=== PATIENT | female | born 1950 | race Caucasian/White ===

== ENCOUNTER 2024-06-26 21:18 | Emergency (ER) | payer MEDICARE, OTHER, SELFPAY ==
[2024-06-26 21:54] VITALS: BP 125/78; PULSE 92; RESP 16; TEMP 36.7; O2SAT 97; BMI 30.8
--- NOTE | 2024-06-26 22:46 | W.ED.SKABFB ---
HPI - Skin/Abscess/Foreign Bdy General: Chief complaint: Skin/Abscess/Foreign Body Stated complaint: Left Leg Sore Time Seen by Provider: 06/26/24 22:29 Source: patient Mode of arrival: ambulatory Limitations: no limitations History of Present Illness: Patient is a 74-year-old female present to the emergency department due to wound and associated redness after she hit it on her walker about 3 days ago. She suffered 2 wounds in the process, 1 is healing well but she states this 1 is taking a lot longer to heal and she is having surrounding redness. Wounds are to her left anterior sampson. She denies any fever, nausea/vomiting, or other systemic signs of illness. She has been applying topical medicine and been wrapping it with nonadhesive dressing, states she has not left it open and dry much. MD complaint: other (Wound/redness left anterior sampson) Onset (ago): day(s) Location: LLE Associated symptoms: Deny chills, fever(s), nausea or vomiting Related Data Previous Rx's Medication Instructions Recorded doxycycline hyclate 100 mg tablet 100 mg PO BID 10 days #20 tabs 06/26/24 Allergies Allergy/AdvReac Type Severity Reaction Status Date / Time amoxicillin Allergy Unknown Verified 06/26/24 21:59 clavulanic acid Allergy Unknown Verified 06/26/24 22:00 [From Augmentin] Review of Systems General: Reports: 10 or more systems reviewed and unremarkable except in HPI and below Const: Denies: fever(s) or chills Card: Denies: chest pain Resp: Denies: dyspnea GI: Denies: abdominal pain, nausea, vomiting or diarrhea Musc: Denies: extremity pain or joint pain Skin/Breast: Reports: erythema and non-healing lesions; Denies: rash, skin pain, skin tenderness or new lesions Neuro: Denies: headache(s) Physical Exam Const: COMMON NORMALS: no acute distress, average body habitus, patient oriented x3, no limitations, healthy appearing, alert and well nourished HENMT: COMMON NORMALS: normocephalic and atraumatic HEAD & SCALP: normocephalic and atraumatic Neck/C-Spine: COMMON NORMALS: full ROM, no lymphadenopathy, supple and no meningeal signs Resp: COMMON NORMALS: normal respiratory effort, No use of accessory muscles and clear to auscultation bilaterally AUSCULTATION: clear to auscultation bilaterally Cardio: COMMON NORMALS: regular rate and regular rhythm RATE: regular rate RHYTHM: regular rhythm Extremity: COMMON NORMALS: full ROM and capillary refill normal Neuro: COMMON NORMALS: patient oriented x3 SENSORIUM/ORIENTATION: Yes alert MENINGEAL SIGNS: Yes no meningeal signs Skin: COMMON NORMALS: turgor normal NARRATIVE SKIN EXAM: Patient has 2 wounds to her left anterior sampson. Larger of the 2 wounds is healing well, smaller wound does have some surrounding erythema with central granulation tissue. There is no active bleeding or drainage. No contamination. GENERAL SKIN EXAM: turgor normal Course Vital Signs: Vital signs: Vital Signs Temperature 98.0 F 06/26/24 21:54 Pulse Rate 92 06/26/24 21:54 Respiratory Rate 16 06/26/24 21:54 Blood Pressure 125/78 06/26/24 21:54 Pulse Oximetry 97 06/26/24 21:54 Oxygen Delivery Me thod Room Air 06/26/24 21:54 MDM - Skin/Abscess/Foreign Bdy Medicial Decision Making Patient presented for evaluation of a nonhealing wound to her left anterior sampson after she bumped it on her walker. She suffered 2 wounds, larger 1 does appear much farther along the healing process, however the wound in question still appears not infected, though due to the mild surrounding erythema will treat prophylactically with antibiotics. Discussed proper wound care and she is to follow-up with primary care when she gets back to [place]. No radiology studies performed this visit Discharge Plan Discharge Patient Disposition: Home Clinical Impression: Cellulitis Condition: Stable Prescriptions: New doxycycline hyclate 100 mg tablet 100 mg PO BID 10 Days Qty: 20 0RF Discharge Orders: Discharge ED (Routine); Ordered 06/26/24 Ordered By: Jer Cannon Discharge Diet: Usual diet Discharge Activity: Increase activity as tolerated Patient Instructions: Cellulitis (ED) Activity Restrictions/Additional Instructions: Doxycycline as prescribed. Leave wound open to dry as discussed. Monitor for any fever, nausea/vomiting, or other systemic signs of illness and return to the emergency department. Otherwise please follow-up with primary care as discussed. Coding Level of Care Code ED Program Engineer for Piotr Giron
[2024-06-26] MEDS: doxycycline 100 mg Tablet PO (22:52)
[2024-06-26 22:59] VITALS: BP 129/53; PULSE 62; RESP 18; O2SAT 97
== END 2024-06-26 23:00 | disposition home or self-care (01) ==
PROVIDERS: Emergency Provider Physician Assistant
DX: L03.116 Cellulitis of left lower limb (principal)
CPT/HCPCS: 99283

== ENCOUNTER 2024-11-04 17:57 | Emergency (ER) | payer MEDICARE, SELFPAY ==
[2024-11-04] VITALS (11 sets, daily range): BP systolic 108–138; BP diastolic 57–82; PULSE 61–90; RESP 16–22; TEMP 36.6; O2SAT 92–100; BMI 29.0
--- NOTE | 2024-11-04 18:01 | XRR_ITS ---
PROCEDURE INFORMATION: Exam: XR Chest Exam date and time: 11/04/2024 8:22 PM Age: 74 years old Clinical indication: Other: Weakness TECHNIQUE: Imaging protocol: Radiologic exam of the chest. Views: 1 view. COMPARISON: No relevant prior studies available. FINDINGS: Lungs: No focal consolidation. Multiple calcified granulomas in the left upper lobe likely of no clinical significance. Pleural spaces: Unremarkable. No pleural effusion. No pneumothorax. Heart/Mediastinum: Mitral annular calcifications. Bones/joints: Severe degenerative changes in the right glenohumeral joint. XR/XR chest 1V portable [id number] IMPRESSION: No focal consolidation.
[2024-11-04 18:57] LABS: Basophils % 0.4 %; Eosinophils # 0.1 10^3/uL (0.0-0.8); Eosinophils % 2.5 %; Hematocrit 22.4 % (36-47); Lymphocytes # 1.4 10^3/uL (0.8-4.8); Lymphocytes % 27.3 %; Mean Corpuscular HGB Conc 29.9 g/dL (30-55); Mean Corpuscular Hemoglobin 26.8 pg (27-33); Mean Corpuscular Volume 89.6 fl (85-98); Mean Platelet Volume 9.3 fL (7.4-10.4); Monocytes # 0.7 10^3/uL (0.2-0.9); Monocytes % 13.2 %; Neutrophils % 56.2 %; Nucleated Red Blood Cells % 0.4 %; Platelet Count 243 10^3/cmm (157-399); Red Cell Distribution Width 19.4 % (12.1-15.1); White Blood Count 5.16 10^3/uL (3.29-11.43)
[2024-11-04 19:26] LABS: Alanine Aminotransferase 21 U/L (0-33); Alkaline Phosphatase 92 U/L (35-105); Aspartate Amino Transferase 32 U/L (0-32); Blood Urea Nitrogen 31 mg/dL (8-23); Calcium 9.4 mg/dL (8.5-10.5); Carbon Dioxide 27 mmol/L (22-29); Chloride 105 mmol/L (98-107); Creatinine Clr Calc Pharmacy 57.2869; Globulin 2.6 g/dL (1.3-4.6); Glucose 102 mg/dL (65-115); Magnesium 1.7 mg/dL (1.7-2.3); Osmolality Calculated 297 mOsm/kg (285-295); Sodium 140 mmol/L (136-145); Thyroid Stimulating Hormone 4.22 uIU/mL (0.27-4.20); Total Bilirubin 0.3 mg/dL (0.15-1.2); Total Protein 5.6 g/dL (6.6-8.7)
--- NOTE | 2024-11-04 20:32 | ECG_ITS ---
[facility]: 2024-[facility]04 Pat Name: Mili Landry Department: Room: Gender: Female Hand Laminator: : 1950 Requested By: Yusuf Uribe Order Number: [id number] Reading MD: ILIANA URENA Measurements Intervals [place] Rate: 61 P: 0 NJ: 0 QRS: 14 QRSD: 109 T: 82 QT: 400 QTc: 404 Interpretive Statements ATRIAL FIBRILLATION MODERATE ST DEPRESSION [0.05+ mV ST DEPRESSION] No previous ECG available for comparison Electronically Signed On 11-06-2024 23:28:51 MEDIA THEORIST AND AUTHOR OF by ILIANA URENA [id number]
--- NOTE | 2024-11-04 20:51 | W.ED.WEAKNES ---
Documented by User: MANN Cordoba 11/05/24 00:13 HPI - Weakness General: Chief complaint: Weakness Stated complaint: weakness sleepy Time Seen by Provider: 11/04/24 20:28 Source: patient Mode of arrival: ambulatory Limitations: no limitations History of Present Illness: Patient is a 74-year-old female who presents the emergency department complaining of weakness worsening over the past few days. In September she was hospitalized in [place] where she is from, this was due to severe anemia where she spent 2 weeks in the hospital. Workup included EGD and colonoscopy, as well as hematologic workup and patient states that they could not find any reason why she is anemic. She was discharged home after receiving 4 units of blood, was feeling okay until weakness started worsening here recently. She states that she is feeling extra sleepy, continually she is not having any black tarry stools or bright red blood in her stool. No hematemesis or hemoptysis, no hematuria. She is not reporting any chest pain or shortness of breath, but does note severe weakness where she is increasingly unable to ambulate without getting weak. She has not been having any fevers. States that prior to September she has not had issues with anemia before. MD Complaint: generalized weakness Onset (ago): day(s) Duration: constant and progressively worsening Location: generalized Context: other (Recent hospitalization for anemia, feels the same) Associated symptoms: Denies chest pain, chills, dysuria, fever(s), headache(s), nausea or vomiting Review of Systems General: Reports: 10 or more systems reviewed and unremarkable except in HPI and below Const: Reports: fatigue and malaise; Denies: fever(s) or chills Eyes: Denies: change in vision ENMT: Denies: throat pain, ear or mastoid pain or nasal discharge Card: Denies: chest pain, palpitations, swelling of feet/ankles or lightheadedness Resp: Denies: dyspnea, productive cough, wheezing or hemoptysis GI: Denies: abdominal pain, nausea, vomiting, hematemesis, diarrhea, constipation or hematochezia : Denies: flank pain, difficulty voiding, dysuria, urinary frequency or hematuria Musc: Reports: muscle weakness; Denies: neck pain, back pain or joint pain Skin/Breast: Denies: rash Neuro: Reports: weakness in extremities; Denies: headache(s) or numbness in extremities Physical Exam Const: COMMON NORMALS: patient oriented x3 GENERAL APPEARANCE: cooperative ORIENTATION/CONSCIOUSNESS: Yes awake OTHER: Tired appearing, pallor noted HENMT: COMMON NORMALS: normocephalic, atraumatic, moist oral mucous membranes and oropharynx normal HEAD & SCALP: normocephalic and atraumatic Eye: COMMON NORMALS: Equal, round and reactive pupils present PUPIL: Yes Equal, round and reactive pupils present OTHER: Pallor of inner eyelids Neck/C-Spine: COMMON NORMALS: full ROM and no lymphadenopathy Chest: COMMONS NORMALS: normal inspection of the chest Resp: COMMON NORMALS: normal respiratory effort, No retractions, No use of accessory muscles and clear to auscultation bilaterally AUSCULTATION: clear to auscultation bilaterally Cardio: COMMON NORMALS: regular rate, S1 normal heart sound present, S2 normal heart sound present, No gallops present (Cardio), No murmurs present (Cardio), No rub (Cardio) and Peripheral pulses 2+ throughout RATE: regular rate RHYTHM: abnormal rhythm irregularly irregular HEART SOUNDS: S1 normal heart sound present and S2 normal heart sound present PERIPHERAL PULSES: Peripheral pulses 2+ throughout GI: COMMON NORMALS: Normal to inspection, nondistended, normoactive bowel sounds present, Soft to palpation and non-tender PALPATION: Yes Soft to palpation Extremity: COMMON NORMALS: full ROM and no pedal edema NARRATIVE EXTREMITY EXAM: Bruising to right lower extremity, reportedly chronic. Delayed cap refill Neuro: COMMON NORMALS: patient oriented x3, moves all extremities, no focal motor deficits and no sensory deficits noted Course Vital Signs: Vital signs: Vital Signs Temperature 98.2 F 11/05/24 03:49 Pulse Rate 70 11/05/24 04:10 Respiratory Rate 19 H 11/05/24 04:10 Blood Pressure 141/76 11/05/24 04:10 Pulse Oximetry 97 11/05/24 04:10 Oxygen Delivery Me thod Room Air 11/05/24 03:00 MDM - Weakness Medical Decision Making Patient presented to the emergency department with severe weakness, stating that it feels identical to when she was anemic. She states that in September she was hospitalized for 2 weeks back home in [place], had a full GI workup with the scope and colonoscopy, as well as hematologic workup. Does not report to me of any findings a told her, was discharged stable condition and cannot here to visit family when she started feeling weak again over the past few days. On exam did note some pallor, tired appearing. Hemoglobin noted to be 6.7, with oh positive blood she was began on transfusion. No symptoms of potential blood loss, normal stools reported and with her recently having normal instrumentation/direct visualization do not suspect blood loss anemia. I spoke with hospitalist, Dr. Lane, who had stated to transfuse 1 unit and see how she feels after this. Patient is stating that she thinks she needs admission to the hospital for further workup, family in the room also stating this. Iron and TIBC pending at this time. Patient discussed with Dr. Macias who patient will be handed off. Lab Data 11/05/24 01:29 11/04/24 18:41 Radiology Impressions Chest X-Ray 11/04/24 18:01 IMPRESSION: No focal consolidation. Laboratory Results WBC 5.99 10^3/uL (3.29-11.43) 11/05/24 01:29 RBC 2.84 10^6/uL (3.85-5.65) L 11/05/24 01:29 Hgb 7.60 g/dL (11.27-16.99) L 11/05/24 01:29 Hct 24.6 % (36-47) L 11/05/24 01:29 MCV 86.6 fl (85-98) 11/05/24 01:29 MCH 26.8 pg (27-33) L 11/05/24 01: MCHC 30.9 g/dL (30-55) 11/05/24 01:29 RDW 18.3 % (12.1-15.1) H 11/05/24 01:29 Plt Count 244 10^3/cmm (157-399) 11/05/24 01:29 MPV 8.9 fL (7.4-10.4) 11/05/24 01:29 Neut % (Auto) 58.1 % 11/05/24 01:29 Lymph % (Auto) 25.4 % 11/05/24 01:29 [place] % (Auto) 12.5 % 11/05/24 01:29 Eos % (Auto) 3.2 % 11/05/24 01:29 Baso % (Auto) 0.3 % 11/05/24 01: Neut # (Auto) 3.48 10^3/uL (1.8-7.7) 11/05/24: Lymph # (Auto) 1.5 10^3/uL (0.8-4.8) 11/05/24 01: [place] # (Auto) 0.8 10^3/uL (0.2-0.9) 11/05/24: Eos # (Auto) 0.2 10^3/uL (0.0-0.8) 11/05/24 01: Baso # (Auto) 0.0 10^3/uL (0.0-0.1) 11/05/24: Nucleated RBC % (auto) 0 % 11/05/24: Nucleated RBCs # 0.0 /100WBC 11/05/24: PT 16.40 SECONDS (12.1-14.9) H 11/04/24 18:41 INR 1.23 (0.8-1.2) H 11/04/24 18:41 APTT 32.8 SECONDS (23.9-36.7) 11/04/24 18:41 Sodium 140 mmol/L (136-145) 11/04/24 18:41 Potassium 4.0 mmol/L (3.5-5.1) 11/04/24 18:41 Chloride 105 mmol/L (98-107) 11/04/24 18:41 Carbon Dioxide 27 mmol/L (22-29) 11/04/24 18:41 Anion Gap 12.0 (5-19) 11/04/24 18:41 BUN 31 mg/dL (8-23) H 11/04/24 18:41 Creatinine 0.9 mg/dL (0.5-0.9) 11/04/24 18:41 GFR Calculation Not Reportable 11/04/24 18:41 Glucose 102 mg/dL (65-115) 11/04/24 18:41 Calculated Osmolality 297 mOsm/kg (285-295) H 11/04/24 18:41 Calcium 9.4 mg/dL (8.5-10.5) 11/04/24 18:41 Magnesium 1.7 mg/dL (1.7-2.3) 11/04/24 18:41 Iron 13 ug/dL (37-145) L 11/04/24 18:41 TIBC 265 mcg/dl 11/04/24 18: % Saturation 4.9 % (20-50) L 11/04/24 18:41 Unsat Iron Binding 252 ug/dL (112-347) 11/04/24 18:41 Total Bilirubin 0.3 mg/dL (0.15-1.2) 11/04/24 18:41 AST 32 U/L (0-32) 11/04/24 18:41 ALT 21 U/L (0-33) 11/04/24 18:41 Alkaline Phosphatase 92 U/L (35-105) 11/04/24 18:41 Total Protein 5.6 g/dL (6.6-8.7) L 11/04/24 18:41 Albumin 3.0 g/dL (3.5-5.2) L 11/04/24 18:41 Globulin 2.6 g/dL (1.3-4.6) 11/04/24 18: TSH 4.22 uIU/mL (0.27-4.20) H 11/04/24 18:41 Urine Color Yellow (Yellow) 11/04/24 21: Urine Appearance Clear (CLEAR) 11/04/24 21: Urine pH 5.5 (5-7) 11/04/24 21: Ur Specific [place] 1.019 (1.005-1.030) 11/04/24 21: Urine Protein Negative (Negative) 11/04/24 21: Urine Glucose (UA) Negative (Normal) 11/04/24 21: Urine Ketones Negative (Negative) 11/04/24 21: Urine Blood Negative (Negative) 11/04/24 21: Urine Nitrate Negative (Negative) 11/04/24 21: Urine Bilirubin Negative (Negative) 11/04/24 21: Urine Urobilinogen 1.0 mg/dL (Negative) 11/04/24 21: Ur Leukocyte Esterase Negative (Negative) 11/04/24 21:30 Urine RBC 0-2 /hpf (0-2) 11/04/24 21: Urine WBC 0-5 /hpf (0-5) 11/04/24 21:30 Ur Squamous Epith Cells 0-5 /hpf (0-5) 11/04/24 21:30 Amorphous Sediment Not Reportable 11/04/24 21:30 Urine Bacteria None seen /hpf (NONE) 11/04/24 21:30 Hyaline Casts 0-4 /lpf H 11/04/24 21:30 Blood Type O Positive 11/04/24 20:48 Rho(D) Type Rh positive 11/04/24 20:48 Antibody Screen Negative 11/04/24 20:48 Crossmatch See Detail 11/04/24 20:48 All radiology interpretation(s) finalized by discharge Discharge Plan Discharge Patient Disposition: Home Clinical Impression: Anemia Qualifiers: Anemia type: unspecified type Qualified Code(s): D64.9 - Anemia, unspecified Condition: Stable Discharge Orders: Discharge ED (Routine); Ordered 11/05/24 Ordered By: Parrish Macias Patient Instructions: Anemia, Blood Transfusion (DC) Activity Restrictions/Additional Instructions: Please follow-up with your family practitioner within the next 7 to 10 days for further evaluation and treatment. You were transfused 2 units of blood in the ER. Thank you for choosing [facility] for your healthcare needs today. Please realize that you were seen in the emergency department and that we are providing you with an emergency medical screening exam and this may not be a complete and all exclusive of all testing and/or medical workup we may need to determine your element or severity of your illness. It is very important that you follow-up as instructed with your primary care provider or specialist for the additional evaluation and to discuss your medical treatment plan. You may return to the emergency department should you have concerns or if your condition changes or worsens in any way. Coding Level of Care Code ED Belt Notcher for Piotr Giron Related Data Allergies Allergy/AdvReac Type Severity Reaction Status Date / Time amoxicillin Allergy Unknown Verified 06/26/24 21:59 clavulanic acid Allergy Unknown Verified 06/26/24 22:00 [From Augmentin] Documented by User: Parrish Macias DO 11/05/24 04:34 HPI - Weakness General: Chief complaint: Weakness Stated complaint: weakness sleepy Time Seen by Provider: 11/04/24 20:28 Course Vital Signs: Vital signs: Vital Signs Temperature 98.2 F 11/05/24 03:49 Pulse Rate 70 11/05/24 04:10 Respiratory Rate 19 H 11/05/24 04:10 Blood Pressure 141/76 11/05/24 04:10 Pulse Oximetry 97 11/05/24 04:10 Oxygen Delivery Me thod Room Air 11/05/24 03:00 MDM - Weakness Medical Decision Making Patient presented to the emergency department with severe weakness, stating that it feels identical to when she was anemic. She states that in September she was hospitalized for 2 weeks back home in [place], had a full GI workup with the scope and colonoscopy, as well as hematologic workup. Does not report to me of any findings a told her, was discharged stable condition and cannot here to visit family when she started feeling weak again over the past few days. On exam did note some pallor, tired appearing. Hemoglobin noted to be 6.7, with oh positive blood she was began on transfusion. No symptoms of potential blood loss, normal stools reported and with her recently having normal instrumentation/direct visualization do not suspect blood loss anemia. I spoke with hospitalist, Dr. Lane, who had stated to transfuse 1 unit and see how she feels after this. Patient is stating that she thinks she needs admission to the hospital for further workup, family in the room also stating this. Iron and TIBC pending at this time. Patient discussed with Dr. Macias who patient will be handed off. Care transferred over to myself at shift change. Patient did get a repeat CBC which showed her anemia had improved by 1 point. Will go ahead and transfuse a second unit. And patient be discharged home. Medical Records I reviewed the patient's medical records. Lab Data I reviewed the patient's lab results. 11/05/24 01:29 11/04/24 18:41 Radiology Impressions Chest X-Ray 11/04/24 18:01 IMPRESSION: No focal consolidation. Laboratory Results WBC 5.99 10^3/uL (3.29-11.43) 11/05/24 01:29 RBC 2.84 10^6/uL (3.85-5.65) L 11/05/24 01: Hgb 7.60 g/dL (11.27-16.99) L 11/05/24: Hct 24.6 % (36-47) L 11/05/24 01: MCV 86.6 fl (85-98) 11/05/24 01: MCH 26.8 pg (27-33) L 11/05/24 01: MCHC 30.9 g/dL (30-55) 11/05/24: RDW 18.3 % (12.1-15.1) H 11/05/24 01: Plt Count 244 10^3/cmm (157-399) 11/05/24: MPV 8.9 fL (7.4-10.4) 11/05/24 01: Neut % (Auto) 58.1 % 11/05/24 01: Lymph % (Auto) 25.4 % 11/05/24 01: [place] % (Auto) 12.5 % 11/05/24 01: Eos % (Auto) 3.2 % 11/05/24 01: Baso % (Auto) 0.3 % 11/05/24: Neut # (Auto) 3.48 10^3/uL (1.8-7.7) 11/05/24: Lymph # (Auto) 1.5 10^3/uL (0.8-4.8) 11/05/24 01: [place] # (Auto) 0.8 10^3/uL (0.2-0.9) 11/05/24: Eos # (Auto) 0.2 10^3/uL (0.0-0.8) 11/05/24 01: Baso # (Auto) 0.0 10^3/uL (0.0-0.1) 11/05/24: Nucleated RBC % (auto) 0 % 11/05/24: Nucleated RBCs # 0.0 /100WBC 11/05/24: PT 16.40 SECONDS (12.1-14.9) H 11/04/24 18:41 INR 1.23 (0.8-1.2) H 11/04/24 18:41 APTT 32.8 SECONDS (23.9-36.7) 11/04/24 18:41 Sodium 140 mmol/L (136-145) 11/04/24 18:41 Potassium 4.0 mmol/L (3.5-5.1) 11/04/24 18:41 Chloride 105 mmol/L (98-107) 11/04/24 18:41 Carbon Dioxide 27 mmol/L (22-29) 11/04/24 18:41 Anion Gap 12.0 (5-19) 11/04/24 18:41 BUN 31 mg/dL (8-23) H 11/04/24 18:41 Creatinine 0.9 mg/dL (0.5-0.9) 11/04/24 18:41 GFR Calculation Not Reportable 11/04/24 18:41 Glucose 102 mg/dL (65-115) 11/04/24 18:41 Calculated Osmolality 297 mOsm/kg (285-295) H 11/04/24 18:41 Calcium 9.4 mg/dL (8.5-10.5) 11/04/24 18:41 Magnesium 1.7 mg/dL (1.7-2.3) 11/04/24 18:41 Iron 13 ug/dL (37-145) L 11/04/24 18:41 TIBC 265 mcg/dl 11/04/24 18:41 % Saturation 4.9 % (20-50) L 11/04/24 18:41 Unsat Iron Binding 252 ug/dL (112-347) 11/04/24 18:41 Total Bilirubin 0.3 mg/dL (0.15-1.2) 11/04/24 18:41 AST 32 U/L (0-32) 11/04/24 18:41 ALT 21 U/L (0-33) 11/04/24 18:41 Alkaline Phosphatase 92 U/L (35-105) 11/04/24 18:41 Total Protein 5.6 g/dL (6.6-8.7) L 11/04/24 18:41 Albumin 3.0 g/dL (3.5-5.2) L 11/04/24 18:41 Globulin 2.6 g/dL (1.3-4.6) 11/04/24 18:41 TSH 4.22 uIU/mL (0.27-4.20) H 11/04/24 18:41 Urine Color Yellow (Yellow) 11/04/24 21:30 Urine Appearance Clear (CLEAR) 11/04/24 21: Urine pH 5.5 (5-7) 11/04/24 21:30 Ur Specific [place] 1.019 (1.005-1.030) 11/04/24 21:30 Urine Protein Negative (Negative) 11/04/24 21: Urine Glucose (UA) Negative (Normal) 11/04/24 21: Urine Ketones Negative (Negative) 11/04/24 21: Urine Blood Negative (Negative) 11/04/24 21: Urine Nitrate Negative (Negative) 11/04/24 21: Urine Bilirubin Negative (Negative) 11/04/24 21: Urine Urobilinogen 1.0 mg/dL (Negative) 11/04/24 21:30 Ur Leukocyte Esterase Negative (Negative) 11/04/24 21:30 Urine RBC 0-2 /hpf (0-2) 11/04/24 21:30 Urine WBC 0-5 /hpf (0-5) 11/04/24 21:30 Ur Squamous Epith Cells 0-5 /hpf (0-5) 11/04/24 21:30 Amorphous Sediment Not Reportable 11/04/24 21: Urine Bacteria None seen /hpf (NONE) 11/04/24 21:30 Hyaline Casts 0-4 /lpf H 11/04/24 21:30 Blood Type O Positive 11/04/24 20:48 Rho(D) Type Rh positive 11/04/24 20:48 Antibody Screen Negative 11/04/24 20:48 Crossmatch See Detail 11/04/24 20:48 Discharge Plan Discharge Patient Disposition: Home Clinical Impression: Anemia Qualifiers: Anemia type: unspecified type Qualified Code(s): D64.9 - Anemia, unspecified Condition: Stable Discharge Orders: Discharge ED (Routine); Ordered 11/05/24 Ordered By: Parrish Macias Patient Instructions: Anemia, Blood Transfusion (DC) Activity Restrictions/Additional Instructions: Please follow-up with your family practitioner within the next 7 to 10 days for further evaluation and treatment. You were transfused 2 units of blood in the ER. Thank you for choosing [facility] for your healthcare needs today. Please realize that you were seen in the emergency department and that we are providing you with an emergency medical screening exam and this may not be a complete and all exclusive of all testing and/or medical workup we may need to determine your element or severity of your illness. It is very important that you follow-up as instructed with your primary care provider or specialist for the additional evaluation and to discuss your medical treatment plan. You may return to the emergency department should you have concerns or if your condition changes or worsens in any way. Coding Level of Care Code ED Belt Notcher for Piotr Fwd Related Data Allergies Allergy/AdvReac Type Severity Reaction Status Date / Time amoxicillin Allergy Unknown Verified 06/26/24 21:59 clavulanic acid Allergy Unknown Verified 06/26/24 22:00 [From Augmentin]
[2024-11-04 21:49] LABS: Bilirubin Urine Negative (Negative); Blood Urine Negative (Negative); Glucose Urine UA Negative (Normal); Ketones Urine Negative (Negative); Leukocyte Esterase Urine Negative (Negative); Nitrate Urine Negative (Negative); Protein Urine Negative (Negative); Specific Gravity, Urine 1.019 (1.005-1.030); Urine Appearance Clear (CLEAR); Urine Color Yellow (Yellow); pH Urine 5.5 (5-7)
[2024-11-04 21:54] LABS: Add Urine Microscopic? YES; Bacteria Urine None Seen /hpf; Hyaline Casts Urine 0-4 /lpf; RBC Urine 0-2 /hpf (0-2); Squamous Epithelial Cell Urine 0-5 /hpf (0-5); WBC Urine 0-5 /hpf (0-5)
[2024-11-04 22:00] LABS: INR 1.23 (0.8-1.2)
[2024-11-04 22:01] LABS: Partial Thromboplastin Time 32.8 SECONDS (23.9-36.7)
--- NOTE | 2024-11-04 22:47 | PC.NURSE ---
NOAH GODFREY WAS AT BEDSIDE AND CONFIRMED RIGHT PT AND BLOOD WAS CORRECT WITH PTS NURSE.
[2024-11-04 23:14] LABS: Iron 13 ug/dL (37-145); Percent Saturation 4.9 % (20-50); Total Iron Binding Capacity 265 mcg/dl; Unsaturated Iron Binding 252 ug/dL (112-347)
--- NOTE | 2024-11-04 23:33 | PC.NURSE ---
AT 2037 DOSAGE CHANGE TO 100 ML/HR AT 2252 TITRATED UP TO 125. LISTENED TO PTS LUNGS AT 2322, LUNGS CLEAR IN ALL [place].
[2024-11-05] VITALS (40 sets, daily range): BP systolic 90–157; BP diastolic 55–97; PULSE 63–97; RESP 11–33; TEMP 36.6–37; O2SAT 78–99
[2024-11-05 01:36] LABS: Basophils % 0.3 %; Eosinophils # 0.2 10^3/uL (0.0-0.8); Eosinophils % 3.2 %; Hematocrit 24.6 % (36-47); Lymphocytes # 1.5 10^3/uL (0.8-4.8); Lymphocytes % 25.4 %; Mean Corpuscular HGB Conc 30.9 g/dL (30-55); Mean Corpuscular Hemoglobin 26.8 pg (27-33); Mean Corpuscular Volume 86.6 fl (85-98); Mean Platelet Volume 8.9 fL (7.4-10.4); Monocytes # 0.8 10^3/uL (0.2-0.9); Monocytes % 12.5 %; Neutrophils # 3.48 10^3/uL (1.8-7.7); Neutrophils % 58.1 %; Nucleated Red Blood Cells % 0 %; Platelet Count 244 10^3/cmm (157-399); Red Blood Count 2.84 10^6/uL (3.85-5.65); Red Cell Distribution Width 18.3 % (12.1-15.1); White Blood Count 5.99 10^3/uL (3.29-11.43)
[2024-11-05] MEDS: sodium chloride 0.9% 100 mL Bag 50 ML IV (02:19)
== END 2024-11-05 08:12 | disposition home or self-care (01) ==
PROVIDERS: Emergency Medicine; Emergency Provider Physician Assistant
DX: D64.9 Anemia, unspecified (principal)
CPT/HCPCS: 36415; 36430; 71045; 80053; 81001; 83540; 83550; 83735; 84443; 85025; 85610; 85730; 86850; 86900; 86920; 93005; 99285; P9016

== ENCOUNTER 2024-11-16 11:58 | Emergency (ER) | payer MEDICARE, SELFPAY ==
[2024-11-16] VITALS (8 sets, daily range): BP systolic 125–162; BP diastolic 67–86; PULSE 51–76; RESP 14–16; TEMP 36.4–36.8; O2SAT 90–94; BMI 29.9
--- NOTE | 2024-11-16 11:59 | XRR_ITS ---
PROCEDURE INFORMATION: Exam: XR Chest Exam date and time: 11/16/2024 12:18 PM Age: 74 years old Clinical indication: Other: Weakness TECHNIQUE: Imaging protocol: Radiologic exam of the chest. Views: 1 view. COMPARISON: CR (CHEST, ) 11/04/2024 8:22 PM FINDINGS: Airway: Airways are patent. Lungs: Stable platelike atelectasis in the left mid lung. Stable left upper lobe calcified granulomas. Remainder of the lungs are clear. Pleural spaces: No pleural effusions or pneumothorax. Heart/Mediastinum: Stable linear increased density in the left retrocardiac space. Question hiatal hernia. Moderate cardiomegaly. Vasculature: Calcified aortic knob. Bones/joints: Bone demineralization. No acute skeletal abnormality or aggressive osseous lesion. Soft tissues: No acute soft tissue findings. XR/XR chest 1V portable [id number] IMPRESSION: 1. No acute findings. 2. Incidental findings as above.
--- NOTE | 2024-11-16 11:59 | ECG_ITS ---
[facility] 2024-[facility]-16 Pat Name: Mili Landry Department: Room: Gender: Female Interface Developer: : [id number] Requested By: Yusuf Uribe Order Number: [id number] Alex MD: Bryant Finley M.D. Measurements Intervals [place] Rate: 59 P: 0 MO: 0 QRS: -12 QRSD: 107 T: 106 QT: 317 QTc: 314 Interpretive Statements ATRIAL FIBRILLATION WITH SLOW VENTRICULAR RESPONSE WITH ABERRANT CONDUCTION OR VENTRICULAR PREMATURE COMPLEXES ST DEVIATION AND MODERATE T-WAVE ABNORMALITY, CONSIDER LATERAL ISCHEMIA [-0.1+ mV T-WAVE IN I/aVL/V5/V6] Compared to ECG 11/04/2024 20:32:30 Ventricular premature complex(es) now present Aberrant conduction of supraventricular beat(s) now present T-wave abnormality now present Possible ischemia now present ST (T wave) deviation no longer present Electronically Signed On 11-19-2024 12:42:37 STAFF ASSISTANT by Bryant Finley M.D. [email or web address]
[2024-11-16 13:02] LABS: Eosinophils # 0.1 10^3/uL (0.0-0.8); Eosinophils % 2.1 %; Lymphocytes # 0.6 10^3/uL (0.8-4.8); Lymphocytes % 8.5 %; Mean Corpuscular HGB Conc 29.6 g/dL (30-55); Mean Corpuscular Hemoglobin 26.6 pg (27-33); Mean Corpuscular Volume 89.9 fl (85-98); Mean Platelet Volume 8.9 fL (7.4-10.4); Monocytes # 0.4 10^3/uL (0.2-0.9); Monocytes % 6.5 %; Neutrophils # 5.57 10^3/uL (1.8-7.7); Neutrophils % 82.6 %; Nucleated Red Blood Cells # 0.1 /100WBC; Nucleated Red Blood Cells % 0.9 %; Platelet Count 227 10^3/cmm (157-399); Red Blood Count 2.67 10^6/uL (3.85-5.65); Red Cell Distribution Width 18.5 % (12.1-15.1); White Blood Count 6.74 10^3/uL (3.29-11.43)
[2024-11-16 13:22] LABS: Alanine Aminotransferase 39 U/L (0-33); Alkaline Phosphatase 93 U/L (35-105); Anion Gap 11.4 (5-19); Aspartate Amino Transferase 41 U/L (0-32); Blood Urea Nitrogen 29 mg/dL (8-23); Calcium 9.8 mg/dL (8.5-10.5); Carbon Dioxide 29 mmol/L (22-29); Chloride 106 mmol/L (98-107); Creatinine Clr Calc Pharmacy 58.2006; Globulin 2.2 g/dL (1.3-4.6); Glucose 94 mg/dL (65-115); Osmolality Calculated 300 mOsm/kg (285-295); Potassium 4.4 mmol/L (3.5-5.1); Sodium 142 mmol/L (136-145); Total Bilirubin 1.2 mg/dL (0.15-1.2); Total Protein 5.2 g/dL (6.6-8.7)
[2024-11-16 13:47] LABS: INR 1.72 (0.8-1.2)
--- NOTE | 2024-11-16 16:33 | ED_ITS ---
HPI - Weakness 2 General: Chief complaint: Weakness Stated complaint: anemia Time Seen by Provider: 11/16/24 16:09 Source: patient Limitations: no limitations History of Present Illness: 74-year-old female states she has been h aving ongoing issues with anemia for the last 4 to 5 months she states she has had multiple transfusions she states she was admitted in [place] and had a large workup not able to figure out the cause of anemia she states that over the last 2 days she been having some decreased energy and weakness. States she is concerned she is getting anemic she denies any blood in her stools denies any blood in her vomit. She denies any fever. Course 2 Vital Signs: Vital signs: Vital Signs Temperature 98.3 F 11/16/24 12:11 Pulse Rate 51 L 11/16/24 16:31 Respiratory Rate 16 11/16/24 16:31 Blood Pressure 153/73 11/16/24 16:31 Pulse Oximetry 90 11/16/24 16:31 Oxygen Delivery Me thod Room Air 11/16/24 16:31 MDM - Weakness Medical Decision Making Patient presents here with some generalized weakness she does have some anemia did give her 1 unit PRBC she is to follow-up with her primary care doctor she has no signs of acute hemorrhage here blood pressures been normal. Return if worsening Medical Records I reviewed the patient's medical records. Lab Data I reviewed the patient's lab results. 11/16/24 12:52 11/16/24 12:52 Radiology Impressions Chest X-Ray 11/16/24 11:59 IMPRESSION: 1. No acute findings. 2. Incidental findings as above. Laboratory Results WBC 6.74 10^3/uL (3.29-11.43) 11/16/24 12:52 RBC 2.67 10^6/uL (3.85-5.65) L 11/16/24 12:52 Hgb 7.10 g/dL (11.27-16.99) L 11/16/24 12:52 Hct 24.0 % (36-47) L 11/16/24 12:52 MCV 89.9 fl (85-98) 11/16/24 12:52 MCH 26.6 pg (27-33) L 11/16/24 12:52 MCHC 29.6 g/dL (30-55) L 11/16/24 12:52 RDW 18.5 % (12.1-15.1) H 11/16/24 12:52 Plt Count 227 10^3/cmm (157-399) 11/16/24 12:52 MPV 8.9 fL (7.4-10.4) 11/16/24 12:52 Neut % (Auto) 82.6 % 11/16/24 12:52 Lymph % (Auto) 8.5 % 11/16/24 12:52 [place] % (Auto) 6.5 % 11/16/24 12:52 Eos % (Auto) 2.1 % 11/16/24 12:52 Baso % (Auto) 0.0 % 11/16/24 12:52 Neut # (Auto) 5.57 10^3/uL (1.8-7.7) 11/16/24 12:52 Lymph # (Auto) 0.6 10^3/uL (0.8-4.8) L 11/16/24 12:52 [place] # (Auto) 0.4 10^3/uL (0.2-0.9) 11/16/24 12:52 Eos # (Auto) 0.1 10^3/uL (0.0-0.8) 11/16/24 12:52 Baso # (Auto) 0.0 10^3/uL (0.0-0.1) 11/16/24 12:52 Nucleated RBC % (auto) 0.9 % 11/16/24 12:52 Nucleated RBCs # 0.1 /100WBC 11/16/24 12:52 PT 21.30 SECONDS (12.1-14.9) H 11/16/24 12:52 INR 1.72 (0.8-1.2) H 11/16/24 12:52 Sodium 142 mmol/L (136-145) 11/16/24 12:52 Potassium 4.4 mmol/L (3.5-5.1) 11/16/24 12:52 Chloride 106 mmol/L (98-107) 11/16/24 12:52 Carbon Dioxide 29 mmol/L (22-29) 11/16/24 12:52 Anion Gap 11.4 (5-19) 11/16/24 12:52 BUN 29 mg/dL (8-23) H 11/16/24 12:52 Creatinine 0.9 mg/dL (0.5-0.9) 11/16/24 12:52 GFR Calculation Not Reportable 11/16/24 12:52 Glucose 94 mg/dL (65-115) 11/16/24 12:52 Calculated Osmolality 300 mOsm/kg (285-295) H 11/16/24 12:52 Calcium 9.8 mg/dL (8.5-10.5) 11/16/24 12:52 Total Bilirubin 1.2 mg/dL (0.15-1.2) 11/16/24 12:52 AST 41 U/L (0-32) H 11/16/24 12:52 ALT 39 U/L (0-33) H 11/16/24 12:52 Alkaline Phosphatase 93 U/L (35-105) 11/16/24 12:52 Total Protein 5.2 g/dL (6.6-8.7) L 11/16/24 12:52 Albumin 3.0 g/dL (3.5-5.2) L 11/16/24 12:52 Globulin 2.2 g/dL (1.3-4.6) 11/16/24 12:52 Blood Type O Positive 11/16/24 16:43 Rho(D) Type Rh positive 11/16/24 16:43 Antibody Screen Negative 11/16/24 16:43 Crossmatch See Detail 11/16/24 16:43 All radiology interpretation(s) finalized by discharge Discharge Plan Discharge Patient Disposition: Home Clinical Impression: Anemia Condition: Stable Prescriptions: No Action carvedilol 25 mg tablet 25 mg PO BID ropinirole 1 mg tablet 1 mg PO DAILY trazodone 50 mg tablet 50 mg PO QPM potassium chloride 10 mEq tablet extended release 10 meq PO DAILY chlorthalidone 25 mg tablet 25 mg PO DAILY timolol maleate 0.25 % drops 1 drp ophthalmic (eye) QAM pantoprazole 40 mg tablet,delayed release (DR/EC) 40 mg PO BID ferrous sulfate 325 mg (65 mg iron) tablet 325 mg PO Q3D Eliquis 5 mg tablet 5 mg PO BID Discharge Orders: Discharge ED (Routine); Ordered 11/16/24 Ordered By: Yusuf Uribe Discharge Diet: Advance as tolerated Discharge Activity: Resume usual activity Patient Instructions: Anemia (ED) Coding Level of Care Code ED [employer] Abuse Counselor for Chg Fwd Related Data Home Medications Medication Instructions Recorded Confirmed apixaban 5 mg tablet (Eliquis) 5 mg PO BID 11/16/24 11/16/24 carvedilol 25 mg tablet 25 mg PO BID 11/16/24 11/16/24 chlorthalidone 25 mg tablet 25 mg PO DAILY 11/16/24 11/16/24 ferrous sulfate 325 mg (65 mg 325 mg PO Q3D 11/16/24 11/16/24 iron) tablet pantoprazole 40 mg tablet,delayed 40 mg PO BID 11/16/24 11/16/24 release potassium chloride 10 mEq 10 meq PO DAILY 11/16/24 11/16/24 tablet,extended release ropinirole 1 mg tablet 1 mg PO DAILY 11/16/24 11/16/24 timolol maleate 0.25 % eye drops 1 drp ophthalmic (eye) QAM 11/16/24 11/16/24 trazodone 50 mg tablet 50 mg PO QPM 11/16/24 11/16/24 Allergies Allergy/AdvReac Type Severity Reaction Status Date / Time amoxicillin Allergy Unknown Verified 06/26/24 21:59 clavulanic acid Allergy Unknown Verified 06/26/24 22:00 [From Augmentin]
== END 2024-11-16 21:36 | disposition home or self-care (01) ==
PROVIDERS: Emergency Provider Emergency Medicine
DX: D64.9 Anemia, unspecified (principal); Z79.01 Long term (current) use of anticoagulants
CPT/HCPCS: 36415; 36430; 71045; 80053; 85025; 85610; 86850; 86900; 86920; 93005; 99285; 99291; P9040